=== PATIENT | female | born 1950 | race Caucasian/White ===

== ENCOUNTER → 2018-11-02 | Outpatient (REF) | payer MEDICARE, BC ==
[~2018-11-02] MED LIST: AMOXICILLIN500 MG PO; AMOXICILLIN875 MG OR; ASPIRIN 8181 MG PO; ATENOLOL25 MG PO; ATENOLOL50 MG PO; CELEBREX100 M1 PO; CLARITHROMYC500 MG PO; CLARITIN10 M1 PO; LISINOPRIL20 MG OR; MULTI VIT PO; PRENATAL1 TAB OR; SPIRIVA IN; VENTOLIN HFA IN
[2018-11-02 09:01] LABS: HEMATOCRIT 34.7 % (37.0-47.0); HEMOGLOBIN 11.3 g/dl (12.0-16.0); MEAN CELL VOLUME 98.3 fL CALC (80.0-100.0); MEAN CORPUSCULAR HGB CONC 32.6 g/L CALC (32.0-36.0); RED BLOOD COUNT 3.53 mill/uL (4.20-5.60); RED CELL DISTRI WIDTH 13.3 % (11.5-15.5)
[2018-11-02 09:27] LABS: ALBUMIN 3.8 g/dL (3.2-5.0); ALKALINE PHOSPHATASE 89 u/l (38-126); ANION GAP 13 (6-22 (CALC)); BUN 14 mg/dL (8-23); BUN/CREATININE RATIO 15 (12-20 (CALC)); CALCULATED LDLCHOLESTEROL 79 mg/dL (62-129 (CALC)); CARBON DIOXIDE 37 mmol/l (22-30); CHLORIDE 89 mmol/l (95-108); CHOLESTEROL HDL RATIO 2.1 (<4.4 (CALC)); CREATININE 0.9 mg/dL (0.5-1.0); GFR > 60 ML/MIN (>=60 (CALC)); GFR FOR AFR.AMER. > 60 ML/MIN (>=60 (CALC)); HDL CHOLESTEROL 82 mg/dL (>=40); POTASSIUM 4.7 mmol/l (3.5-5.1); SGOT/AST 39 u/l (9-36); SODIUM 134 mmol/l (137-146); TOTAL CHOLESTEROL 172 mg/dl (0-199); TOTAL TRIGLYCERIDES 56 mg/dl (30-149); VLDL CHOLESTROL 11 mg/dl (1-41 (CALC))
[2018-11-02 09:53] LABS: TSH, 3RD GENERATION 1.67 uIU/mL (0.47 - 4.68)
== END | disposition home or self-care (01) ==
LOC: LAB 08:09
PROVIDERS: ATTEND Internal Medicine
DX: I10 Essential (primary) hypertension (principal); E78.49 Other hyperlipidemia; R53.83 Other fatigue; E11.65 Type 2 diabetes mellitus with hyperglycemia; I25.10 Atherosclerotic heart disease of native coronary artery without angina pectoris; E55.9 Vitamin D deficiency, unspecified

== ENCOUNTER 2018-12-03 15:56 | Inpatient (IN) | payer MEDICARE, BC ==
[~2018-12-03] VITALS: Ht 162.6 cm; Wt 96.0 kg
[2018-12-03 17:01] LABS: HEMATOCRIT 34.4 % (37.0-47.0); HEMOGLOBIN 11.5 g/dl (12.0-16.0); MEAN CELL VOLUME 95.8 fL CALC (80.0-100.0); MEAN CORPUSCULAR HGB CONC 33.4 g/L CALC (32.0-36.0); NEUT# 17.28 thou/uL (2.00-7.15); RED BLOOD COUNT 3.59 mill/uL (4.20-5.60); RED CELL DISTRI WIDTH 12.9 % (11.5-15.5)
[2018-12-03 17:43] LABS: ALBUMIN 3.5 g/dL (3.2-5.0); BILIRUBIN, TOTAL 1.1 mg/dL (0.0-1.4); CREATININE 1.1 mg/dL (0.5-1.0); POTASSIUM 4.6 mmol/l (3.5-5.1); TOTAL PROTEIN 6.6 g/dL (6.3-8.2)
[2018-12-03 17:54] LABS: C-REACTIVE PROTEIN 14.8 mg/dL (0-0.9)
[2018-12-03] MEDS ORDERED: D31000 UNIT PO (19:08)
[2018-12-03] MEDS ORDERED: SPIRONOLACT25 MG PO (19:09)
[2018-12-03] MEDS ORDERED: KLOR-CON M2020 MEQ PO (19:09)
[2018-12-03] MEDS ORDERED: TORSEMIDE20 M1 PO (19:10)
[2018-12-03] MEDS ORDERED: METOLAZONE2.5 MG PO (19:11)
[2018-12-03] MEDS ORDERED: LORATADINE10 M1 PO (19:12)
[2018-12-03] MEDS ORDERED: PREDNISONE10 MG PO (19:12)
[2018-12-03 19:40] VITALS: BP 134/70
[2018-12-04 03:40] VITALS: BP 93/53
[2018-12-04 06:14] LABS: ANION GAP 13 (6-22 (CALC)); BUN 21 mg/dL (8-23); BUN/CREATININE RATIO 24 (12-20 (CALC)); CARBON DIOXIDE 31 mmol/l (22-30); CHLORIDE 91 mmol/l (95-108); CREATININE 0.9 mg/dL (0.5-1.0); GFR > 60 ML/MIN (>=60 (CALC)); GFR FOR AFR.AMER. > 60 ML/MIN (>=60 (CALC)); POTASSIUM 4.5 mmol/l (3.5-5.1); SODIUM 131 mmol/l (137-146)
[2018-12-04 06:47] LABS: MEAN CELL VOLUME 92.5 fL CALC (80.0-100.0); MEAN CORPUSCULAR HGB 31.8 pG CALC (26.0-32.0); MEAN CORPUSCULAR HGB CONC 34.4 g/L CALC (32.0-36.0); RED BLOOD COUNT 3.46 mill/uL (4.20-5.60); RED CELL DISTRI WIDTH 12.7 % (11.5-15.5)
[2018-12-04 08:30] VITALS: BP 94/56
[2018-12-04 11:16] VITALS: BP 113/59
[2018-12-04 15:00] VITALS: BP 107/47
[2018-12-04 19:00] VITALS: BP 118/64
[2018-12-05 05:00] VITALS: BP 95/45
[2018-12-05 05:29] LABS: HEMATOCRIT 32.6 % (37.0-47.0); HEMOGLOBIN 10.7 g/dl (12.0-16.0); IMMATURE GRANULOCYTES 0.5 % (0.0-5.0); MEAN CORPUSCULAR HGB 32.2 pG CALC (26.0-32.0); MEAN CORPUSCULAR HGB CONC 32.8 g/L CALC (32.0-36.0); NEUT# 5.39 thou/uL (2.00-7.15); RED BLOOD COUNT 3.32 mill/uL (4.20-5.60); RED CELL DISTRI WIDTH 12.8 % (11.5-15.5)
[2018-12-05 05:36] LABS: MEAN CELL VOLUME 98.2 fL CALC (80.0-100.0)
[2018-12-05 05:46] LABS: ANION GAP 10 (6-22 (CALC)); BUN 18 mg/dL (8-23); BUN/CREATININE RATIO 21 (12-20 (CALC)); CARBON DIOXIDE 34 mmol/l (22-30); CHLORIDE 93 mmol/l (95-108); CREATININE 0.9 mg/dL (0.5-1.0); GFR > 60 ML/MIN (>=60 (CALC)); GFR FOR AFR.AMER. > 60 ML/MIN (>=60 (CALC)); POTASSIUM 4.4 mmol/l (3.5-5.1); SODIUM 132 mmol/l (137-146)
[2018-12-05 05:50] LABS: MAGNESIUM 1.5 mg/dL (1.6-2.3)
[2018-12-05 08:46] VITALS: BP 105/53
[2018-12-05 10:25] VITALS: BP 86/48
[2018-12-05 17:15] VITALS: BP 123/50
[2018-12-05 20:00] VITALS: BP 102/53
[2018-12-06] VITALS: BP 104/51
[2018-12-06 04:00] VITALS: BP 102/61
[2018-12-06 07:20] VITALS: BP 106/54
[2018-12-06 15:15] VITALS: BP 109/63
[2018-12-06 19:39] VITALS: BP 134/54
[2018-12-07 05:00] VITALS: BP 112/56
[2018-12-07 05:32] LABS: HEMATOCRIT 31.7 % (37.0-47.0); HEMOGLOBIN 10.5 g/dl (12.0-16.0); IMMATURE GRANULOCYTES 0.2 % (0.0-5.0); MEAN CELL VOLUME 96.9 fL CALC (80.0-100.0); MEAN CORPUSCULAR HGB 32.1 pG CALC (26.0-32.0); MEAN CORPUSCULAR HGB CONC 33.1 g/L CALC (32.0-36.0); NEUT# 2.84 thou/uL (2.00-7.15); RED BLOOD COUNT 3.27 mill/uL (4.20-5.60); RED CELL DISTRI WIDTH 12.5 % (11.5-15.5)
[2018-12-07 05:54] LABS: ANION GAP 12 (6-22 (CALC)); BUN 15 mg/dL (8-23); BUN/CREATININE RATIO 19 (12-20 (CALC)); CARBON DIOXIDE 32 mmol/l (22-30); CHLORIDE 92 mmol/l (95-108); CREATININE 0.8 mg/dL (0.5-1.0); GFR > 60 ML/MIN (>=60 (CALC)); GFR FOR AFR.AMER. > 60 ML/MIN (>=60 (CALC)); MAGNESIUM 1.5 mg/dL (1.6-2.3); SODIUM 131 mmol/l (137-146)
[2018-12-07 09:04] VITALS: BP 114/54
[2018-12-07 09:12] VITALS: BP 114/54
[2018-12-07] MEDS ORDERED: KEFLEX500 MG PO (14:14)
== END 2018-12-07 16:00 | disposition home or self-care (01) | DRG 603 ==
LOC: ED 15:56 → ED-I 18:21 → ED 18:39 → MS2 18:40
PROVIDERS: Emergency Medicine; Nurse Practitioner Family; ADMIT Internal Medicine; ATTEND Internal Medicine
DX: L03.116 Cellulitis of left lower limb (principal); E87.1 Hypo-osmolality and hyponatremia; I10 Essential (primary) hypertension; J43.9 Emphysema, unspecified; D63.8 Anemia in other chronic diseases classified elsewhere; T50.2X5A Adverse effect of carbonic-anhydrase inhibitors, benzothiadiazides and other diuretics, initial encounter; M19.90 Unspecified osteoarthritis, unspecified site; Z85.118 Personal history of other malignant neoplasm of bronchus and lung; Z99.81 Dependence on supplemental oxygen; Z90.2 Acquired absence of lung [part of]; Z92.3 Personal history of irradiation; Z92.21 Personal history of antineoplastic chemotherapy
CPT/HCPCS: J0692; J1650